=== PATIENT | male | born 1965 | race Caucasian/White ===

== ENCOUNTER → 2019-03-22 | Outpatient (CLI) | payer BC, OTHER ==
[~2019-03-22] MED LIST: FLONASE16 GM INH; LEVAQUIN 500 M500 M2 PO; LISINOPRIL20 MG; NORCO 5-325 TA1 EACH PO; VENTOLIN HFA 1818 GM; ZOCOR 20 MG TAB20 M1; ZPAK PO
== END ==
LOC: RAD 12:09
DX: J44.9 Chronic obstructive pulmonary disease, unspecified (principal)

== ENCOUNTER 2019-04-29 11:43 | Emergency (ER) | payer BC, OTHER ==
[~2019-04-29] VITALS: Ht 180.3 cm; Wt 112.0 kg
[2019-04-29] MEDS ORDERED: METFORMIN HCL500 MG PO (11:48)
[2019-04-29] MEDS ORDERED: NORCO 5-325 TA1 EAC1 PO (12:46)
[2019-04-29 13:10] VITALS: BP 142/81
== END 2019-04-29 13:10 | disposition home or self-care (01) ==
LOC: ER 11:43
DX: S62.002A Unspecified fracture of navicular [scaphoid] bone of left wrist, initial encounter for closed fracture (principal); J45.909 Unspecified asthma, uncomplicated; I10 Essential (primary) hypertension; Z91.010 Allergy to peanuts; Z88.0 Allergy status to penicillin; W18.39XA Other fall on same level, initial encounter; Y92.89 Other specified places as the place of occurrence of the external cause; Y93.89 Activity, other specified; Y99.8 Other external cause status

== ENCOUNTER → 2019-05-07 | Outpatient (CLI) | payer BC, OTHER ==
[~2019-05-07] MED LIST changes: +METFORMIN HCL500 MG PO; +NORCO 5-325 TA1 EAC1 PO
== END ==
LOC: CAT 13:29
DX: J98.59 Other diseases of mediastinum, not elsewhere classified (principal); I25.10 Atherosclerotic heart disease of native coronary artery without angina pectoris; Z88.0 Allergy status to penicillin; Z88.1 Allergy status to other antibiotic agents

== ENCOUNTER 2020-07-27 22:23 | Emergency (ER) | payer BC, OTHER ==
[~2020-07-27] VITALS: Ht 180.3 cm; Wt 111.1 kg
[2020-07-27] MEDS ORDERED: BENTYL 20 MG TA20 M1 PO (22:33)
[2020-07-27] MEDS ORDERED: FARXIGA10 MG PO (22:33)
[2020-07-27] MEDS ORDERED: ALBUTEROL0.63 MG/3 INH (22:33)
[2020-07-27] MEDS ORDERED: BREO ELLIPTA 11 EACH INH (22:33)
[2020-07-28] MEDS ORDERED: DOXYCYCLINE 10100 M2 PO (01:42)
[2020-07-28] MEDS ORDERED: VENTOLIN HFA 1818 GM INH (01:42)
[2020-07-28] MEDS ORDERED: GUAIFEN-CODEINE10 ML PO (01:42)
[2020-07-28] MEDS ORDERED: PREDNISONE 20 M20 MG PO (01:42)
[2020-07-28 01:57] VITALS: BP 141/84
== END 2020-07-28 02:04 | disposition home or self-care (01) ==
LOC: ER 22:23
DX: U07.1 COVID-19 (principal); J45.909 Unspecified asthma, uncomplicated; I10 Essential (primary) hypertension; Z79.899 Other long term (current) drug therapy; Z88.0 Allergy status to penicillin; Z91.010 Allergy to peanuts

== ENCOUNTER → 2020-09-22 | Outpatient (CLI) | payer BC, OTHER ==
[~2020-09-22] MED LIST changes: +ALBUTEROL0.63 MG/3 INH; +BENTYL 20 MG TA20 M1 PO; +BREO ELLIPTA 11 EACH INH; +DOXYCYCLINE 10100 M2 PO; +FARXIGA10 MG PO; +GUAIFEN-CODEINE10 ML PO; +PREDNISONE 20 M20 MG PO; +VENTOLIN HFA 1818 GM INH
== END ==
LOC: RAD 09:16
PROVIDERS: ATTEND Internal Medicine
DX: J45.40 Moderate persistent asthma, uncomplicated (principal); R91.8 Other nonspecific abnormal finding of lung field

== ENCOUNTER 2021-07-27 01:01 | Emergency (ER) | payer BC ==
[~2021-07-27] VITALS: Ht 182.9 cm; Wt 111.1 kg
[2021-07-27] MEDS ORDERED: [UNRECOGNIZED DRUG - REMARK] (01:23)
[2021-07-27] MEDS ORDERED: PROAIR HFA8.5 GM INH (01:24)
[2021-07-27 01:46] LABS: URINE BILIRUBIN NEGATIVE (Negative); URINE BLOOD 1+ (Negative); URINE CLARITY CLEAR; URINE COLOR YELLOW; URINE GLUCOSE-RANDOM* 3+ (Negative); URINE KETONES NEGATIVE (Negative); URINE LEUKOCYTES-REFLEX NEGATIVE (Negative); URINE NITRITE-REFLEX NEGATIVE (Negative); URINE PROTEIN (DIPSTICK) NEGATIVE (Negative); URINE SPECIFIC GRAVITY <= 1.005 (1.005-1.035); URINE UROBILINOGEN 0.2 E.U./dl (0.2-1.0)
[2021-07-27 02:50] LABS: BACTERIA-REFLEX None Seen /HPF (None Seen); CASTS None Seen /LPF (None Seen); CRYSTALS None Seen /LPF (None Seen); MUCUS None Seen strn/LPF (None Seen); SQUAMOUS None Seen /LPF (0-3); URINE RBC None Seen /HPF (NONE SEEN); URINE WBC-REFLEX None Seen /HPF (0-5)
[2021-07-27 03:05] LABS: ABSOLUTE NEUTROPHILS 5.8 thou/uL (1.4-8.2); EOSINOPHILS 3.2 % (0.0-3.0); HEMATOCRIT 43.8 % (42.0-52.0); HEMOGLOBIN 15.4 gm/dL (14.0-18.0); LYMPHOCYTES 20.8 % (24.0-44.0); MCH 32.9 pg (26.0-34.0); MCHC 35.1 g/dL (28.0-37.0); MCV 93.9 fL (80.0-100.0); MONOCYTES 13.3 % (1.0-8.0); PLATELET COUNT 122 thou/uL (150-400); POLYS 61.7 % (36.0-66.0); RBC 4.66 mil/uL (4.50-6.00); RDW 12.9 % (10.5-14.5); WBC 9.4 thou/uL (4.0-11.0)
[2021-07-27 03:09] LABS: CALCIUM 8.7 mg/dL (8.5-10.1); CREATININE 0.9 mg/dL (0.7-1.3); POTASSIUM 4.2 mmol/L (3.5-5.1)
[2021-07-27 03:50] VITALS: BP 144/74
== END 2021-07-27 03:50 | disposition home or self-care (01) ==
LOC: ER 01:01
PROVIDERS: Student in an Organized Health Care Education/Training Program
DX: R33.9 Retention of urine, unspecified (principal); J45.909 Unspecified asthma, uncomplicated; I10 Essential (primary) hypertension; Z98.890 Other specified postprocedural states; Z86.16 Personal history of COVID-19; Z79.51 Long term (current) use of inhaled steroids; Z79.899 Other long term (current) drug therapy; Z91.010 Allergy to peanuts; Z88.0 Allergy status to penicillin; Z91.09 Other allergy status, other than to drugs and biological substances

== ENCOUNTER 2021-10-11 23:27 | Emergency (ER) | payer BC ==
[~2021-10-11] VITALS: Ht 180.3 cm; Wt 102.1 kg
[~2021-10-11 23:27] MED LIST changes: +PROAIR HFA8.5 GM INH; +[UNRECOGNIZED DRUG - REMARK]
[2021-10-12] MEDS ORDERED: TRAMADOL 50 MG50 MG PO (02:40)
[2021-10-12 03:09] VITALS: BP 109/81
== END 2021-10-12 03:10 | disposition home or self-care (01) ==
LOC: ER 23:27
DX: M25.572 Pain in left ankle and joints of left foot (principal); J45.909 Unspecified asthma, uncomplicated; Z79.899 Other long term (current) drug therapy; Z88.0 Allergy status to penicillin; Z91.010 Allergy to peanuts